=== PATIENT | female | born 2000 | race Two or more races ===

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

== ENCOUNTER → 2020-12-05 | Outpatient (REF) | payer OTHER ==
[2020-12-05 11:52] LABS: BASO % 0.4 % (0.0-1.0); EOS # 0.1 10^3/uL (0.0-0.5); EOS % 1.1 % (0.0-3.0); HEMATOCRIT 45.3 % (36.0-47.0); HEMOGLOBIN 14.5 g/dl (12.0-15.5); LYMPH % 22.7 % (24.0-44.0); MEAN CORPUSCULAR HEMOGLOBIN 26.9 pg (27.0-33.0); MEAN CORPUSCULAR VOLUME 83.9 fl (80.0-96.0); MONO # 0.5 10^3/uL (0.0-0.8); MONO % 5.6 % (2.0-8.0); NEUTROPHILS # 6.3 10^3/uL (1.5-8.5); NEUTROPHILS % 69.8 % (36.0-66.0); PLATELET COUNT, AUTOMATED 383 10^3/uL (150-450)
[2020-12-05 12:46] LABS: ALBUMIN 4.3 GM/DL (3.2-5.2); ALT/SGPT 41 U/L (12-78); BILIRUBIN,TOTAL 0.9 MG/DL (0.2-1.0); BLOOD UREA NITROGEN 14 MG/DL (7-18); CALCIUM LEVEL 9.8 MG/DL (8.5-10.1); CARBON DIOXIDE LEVEL 27 MEQ/L (21-32); CHLORIDE LEVEL 103 MEQ/L (98-107); CREATININE FOR GFR 0.74 MG/DL (0.55-1.30); FREE T4 0.82 NG/DL (0.78-1.33); GLUCOSE, FASTING 96 MG/DL (70-100); POTASSIUM SERUM 3.9 MEQ/L (3.5-5.1); SODIUM LEVEL 138 MEQ/L (136-145); TOTAL PROTEIN 8.2 GM/DL (6.4-8.2)
[2020-12-05 13:26] LABS: HEMOGLOBIN A1c 5.4 %
== END ==
LOC: M SFHCPLAZ 09:44
PROVIDERS: ATTEND Nurse Practitioner Family
DX: Z00.00 Encounter for general adult medical examination without abnormal findings (principal); Z13.228 Encounter for screening for other metabolic disorders; Z13.1 Encounter for screening for diabetes mellitus

== ENCOUNTER 2021-09-03 13:47 | Emergency (ER) | payer OTHER ==
[~2021-09-03] VITALS: Ht 170.2 cm; Wt 95.5 kg
[2021-09-03 14:00] VITALS: BP 120/74
[2021-09-03] MEDS ORDERED: IBUPROFEN 800 MG TAB PO ONE (16:55)
[2021-09-03] MEDS ORDERED: IBUP80TA PO (16:58)
== END 2021-09-03 18:09 | disposition home or self-care (01) ==
LOC: M ED 13:47
DX: S92.354A Nondisplaced fracture of fifth metatarsal bone, right foot, initial encounter for closed fracture (principal); W16.512A Jumping or diving into swimming pool striking water surface causing other injury, initial encounter; Y92.9 Unspecified place or not applicable; Y93.11 Activity, swimming; Y99.0 Civilian activity done for income or pay

== ENCOUNTER → 2021-09-21 | Outpatient (CLI) | payer OTHER ==
[~2021-09-21] MED LIST changes: +IBUP80TA PO
== END ==
LOC: M SOG 13:07
PROVIDERS: ATTEND Orthopaedic Surgery Hand Surgery
DX: S92.351D Displaced fracture of fifth metatarsal bone, right foot, subsequent encounter for fracture with routine healing (principal); X58.XXXS Exposure to other specified factors, sequela

== ENCOUNTER → 2021-10-05 | Outpatient (CLI) | payer OTHER | LOC: M SOG 08:46 | PROVIDERS: ATTEND Orthopaedic Surgery Hand Surgery | DX: S92.351A Displaced fracture of fifth metatarsal bone, right foot, initial encounter for closed fracture (principal); X58.XXXA Exposure to other specified factors, initial encounter; Y92.9 Unspecified place or not applicable ==

== ENCOUNTER → 2021-12-29 | Outpatient (REF) | payer OTHER | LOC: M SFHCPLAZ 10:04 | PROVIDERS: ATTEND Nurse Practitioner Family | DX: Z01.419 Encounter for gynecological examination (general) (routine) without abnormal findings (principal); Z12.4 Encounter for screening for malignant neoplasm of cervix ==

== ENCOUNTER → 2022-04-23 | Outpatient (CLI) | payer OTHER | LOC: M PLAIMG 10:35 → M PLALAB 10:35 | PROVIDERS: ATTEND Nurse Practitioner Family | DX: M54.50 Low back pain, unspecified (principal) ==

== ENCOUNTER 2023-04-11 10:48 | Emergency (ER) | payer OTHER ==
[~2023-04-11] VITALS: Ht 167.6 cm; Wt 90.9 kg
[2023-04-11 13:04] LABS: BASO # 0.1 10^3/uL (0.0-0.2); BASO % 0.6 % (0.0-1.0); EOS # 0.1 10^3/uL (0.0-0.5); EOS % 1.1 % (0.0-3.0); HEMOGLOBIN 13.7 g/dl (12.0-15.5); LYMPH % 30.6 % (24.0-44.0); MEAN CORPUSCULAR HEMOGLOBIN 27.6 pg (27.0-33.0); MEAN CORPUSCULAR HGB CONC 33.4 g/dl (32.0-36.5); MEAN CORPUSCULAR VOLUME 82.7 fl (80.0-96.0); MONO # 0.6 10^3/uL (0.0-0.8); MONO % 6.1 % (2.0-8.0); NEUTROPHILS % 61.2 % (36.0-66.0); PLATELET COUNT, AUTOMATED 340 10^3/uL (150-450); RED BLOOD COUNT 4.96 10^6/uL (4.00-5.40); WHITE BLOOD COUNT 9.7 10^3/uL (4.0-10.0)
[2023-04-11 13:27] LABS: ERYTHROCYTE SEDIMENTATION RATE 17 mm/hr (0-20)
[2023-04-11] MEDS ORDERED: TETRACAINE 0.5% OPHTH SOLN 4ML OU ONE (13:45)
[2023-04-11 14:55] VITALS: BP 105/66; TEMP 98; O2SAT 99
== END 2023-04-11 14:56 | disposition home or self-care (01) ==
LOC: M ED 10:48
DX: G43.709 Chronic migraine without aura, not intractable, without status migrainosus (principal); F17.200 Nicotine dependence, unspecified, uncomplicated; F10.10 Alcohol abuse, uncomplicated; Z79.1 Long term (current) use of non-steroidal anti-inflammatories (NSAID); Z79.899 Other long term (current) drug therapy

== ENCOUNTER 2023-04-24 19:07 | Observation (INO) | payer OTHER ==
[~2023-04-24] VITALS: Ht 167.6 cm; Wt 90.9 kg
[2023-04-24 20:18] LABS: ALBUMIN 4.1 G/DL (3.2-5.2); BILIRUBIN,DIRECT 0.2 MG/DL (<0.4); BILIRUBIN,TOTAL 0.5 MG/DL (0.3-1.2); TOTAL PROTEIN 7.5 G/DL (5.7-8.2)
[2023-04-24 20:19] LABS: BASO # 0.1 10^3/uL (0.0-0.2); BASO % 0.3 % (0.0-1.0); HEMATOCRIT 43.5 % (36.0-47.0); HEMOGLOBIN 14.3 g/dl (12.0-15.5); LYMPH # 4.2 10^3/uL (1.5-5.0); LYMPH % 15.5 % (24.0-44.0); MEAN CORPUSCULAR HEMOGLOBIN 27.3 pg (27.0-33.0); MEAN CORPUSCULAR HGB CONC 32.9 g/dl (32.0-36.5); MEAN CORPUSCULAR VOLUME 83.2 fl (80.0-96.0); MONO % 6.6 % (2.0-8.0); NEUTROPHILS # 20.7 10^3/uL (1.5-8.5); NEUTROPHILS % 76.2 % (36.0-66.0); PLATELET COUNT, AUTOMATED 444 10^3/uL (150-450); RED BLOOD COUNT 5.23 10^6/uL (4.00-5.40); WHITE BLOOD COUNT 27.1 10^3/uL (4.0-10.0)
[2023-04-24] MEDS ORDERED: KETOROLAC 30 MG/ML 1ML VIAL IV ONE (20:20)
[2023-04-24] MEDS ORDERED: ONDANSETRON 4MG 2ML VIAL IV ONE (20:20)
[2023-04-24] MEDS ORDERED: NS 1,000 ML IV ONE (20:20)
[2023-04-24 20:42] LABS: MONO # 1.8 10^3/uL (0.0-0.8)
[2023-04-24] MEDS ORDERED: cefTRIAXone SOD 1 GM in D5W MINI-BAG PLUS 50 ML IV ONE (21:35)
[2023-04-24] MEDS ORDERED: MORPHINE 2 MG/ML 1ML VIAL IV ONE (22:45)
[2023-04-24] MEDS ORDERED: ISOVUE-300 61% 100ML VIAL As Ordered ONE (23:07)
[2023-04-24] MEDS ORDERED: MIDAZOLAM INJ 2MG/2ML VIAL As Ordered ONE (23:13)
[2023-04-24] MEDS ORDERED: fentaNYL 100 MCG/2 ML INJECTION As Ordered ONE (23:13)
[2023-04-24] MEDS ORDERED: ONDANSETRON 4MG 2ML VIAL As Ordered ONE (23:14)
[2023-04-24] MEDS ORDERED: propofoL 200 MG/20 ML VIAL As Ordered ONE (23:14)
[2023-04-24] MEDS ORDERED: LIDOCAINE 2% 100MG/5ML SDV (FOR ANES.) As Ordered ONE (23:14)
[2023-04-25] VITALS (8 sets, daily range): BP systolic 102–107; BP diastolic 62–74; TEMP 96.4–97.9; O2SAT 96–99
[2023-04-25] MEDS ORDERED: ACETAMINOPHEN 1000MG 100ML IV BAG As Ordered ONE (00:15)
[2023-04-25 00:19] LABS: RSV AMPLIFICATION NEGATIVE (NEGATIVE)
[2023-04-25] MEDS ORDERED: SODIUM CHLORIDE 0.9% 1000ML IV SCH (00:20)
[2023-04-25] MEDS ORDERED: NS 1,000 ML IV SCH (00:20)
[2023-04-25] MEDS ORDERED: ONDANSETRON 4MG 2ML VIAL IV PRN ×2 (00:20→00:45)
[2023-04-25] MEDS ORDERED: HYDROMORPHONE HCL 0.5 MG/ 0.5 ML SYRINGE IV PRN (00:20)
[2023-04-25] MEDS ORDERED: ACETAMINOPHEN TAB 650MG DOSE (2X325MG) PO PRN (00:20)
[2023-04-25] MEDS ORDERED: LR 1,000 ML IV SCH (00:45)
[2023-04-25] MEDS ORDERED: METOCLOPRAMIDE INJ 10MG/2ML VIAL IV PRN (00:45)
[2023-04-25] MEDS ORDERED: oxyCODONE 5MG TAB PO PRN (00:45)
[2023-04-25] MEDS ORDERED: fentaNYL 100 MCG/2 ML INJECTION IV PRN (00:45)
[2023-04-25] MEDS ORDERED: TOPI-254 PO (02:10)
[2023-04-25] MEDS ORDERED: SUMA50TA2 PO (02:10)
[2023-04-25] MEDS ORDERED: AMIT10TA7 PO (02:10)
[2023-04-25] MEDS ORDERED: PRED20TA PO (02:10)
[2023-04-25] MEDS ORDERED: HOME MED LIST COMPLETE! XX SCH (02:15)
[2023-04-25 08:08] LABS: HEMATOCRIT 37.1 % (36.0-47.0); HEMOGLOBIN 12.3 g/dl (12.0-15.5); MEAN CORPUSCULAR HEMOGLOBIN 27.6 pg (27.0-33.0); MEAN CORPUSCULAR HGB CONC 33.2 g/dl (32.0-36.5); MEAN CORPUSCULAR VOLUME 83.4 fl (80.0-96.0); RED BLOOD COUNT 4.45 10^6/uL (4.00-5.40); WHITE BLOOD COUNT 15.6 10^3/uL (4.0-10.0)
[2023-04-25 08:09] LABS: PLATELET COUNT, AUTOMATED 336 10^3/uL (150-450)
[2023-04-25] MEDS ORDERED: KETOROLAC 30 MG/ML 1ML VIAL IV PRN (08:35)
[2023-04-25 08:48] LABS: ALBUMIN 3.3 G/DL (3.2-5.2); ALKALINE PHOSPHATASE 86 U/L (46-116); ALT/SGPT 54 U/L (7.0-40); AST/SGOT 47 U/L (<34); BILIRUBIN,DIRECT 0.3 MG/DL (<0.4); BILIRUBIN,TOTAL 0.7 MG/DL (0.3-1.2); BLOOD UREA NITROGEN 19 MG/DL (9-23); CALCIUM LEVEL 8.5 MG/DL (8.5-10.1); CARBON DIOXIDE LEVEL 23 MMOL/L (20-31); CHLORIDE LEVEL 109 MMOL/L (98-107); CREATININE FOR GFR 0.75 MG/DL (0.55-1.30); GLOMERULAR FILTRATION RATE > 60.0 (>60); GLUCOSE, FASTING 115 MG/DL (60-100); POTASSIUM SERUM 4.1 MMOL/L (3.5-5.1); SODIUM LEVEL 141 MMOL/L (136-145); TOTAL PROTEIN 6.3 G/DL (5.7-8.2)
[2023-04-25] MEDS ORDERED: CEFD300C41 PO ×2 (12:07→12:12)
[2023-04-25] MEDS ORDERED: PROBCAP14 PO (12:07)
[2023-04-25] MEDS ORDERED: OXYB5TAB10 PO (12:07)
[2023-04-25] MEDS ORDERED: cefTRIAXone SOD 1 GM in D5W MINI-BAG PLUS 50 ML IV SCH ×2 (15:00→21:00)
== END 2023-04-25 15:02 | disposition home or self-care (01) ==
LOC: M ED 19:07 → M ED INP 04-25 00:18 → M MS4PR 04-25 01:51
PROVIDERS: ADMIT Internal Medicine; ATTEND Internal Medicine
DX: N13.2 Hydronephrosis with renal and ureteral calculous obstruction (principal); N39.0 Urinary tract infection, site not specified; G43.909 Migraine, unspecified, not intractable, without status migrainosus; E66.9 Obesity, unspecified; Z79.899 Other long term (current) drug therapy
CPT/HCPCS: 36415; 52332; 74176; 76000; 76830; 76856; 80047; 80048; 80076; 81000; 81001; 81015; 83605; 83690; 84702; 85025; 85027; 87040; 87086; 87631; 93976; 96365; 96366; 96375; 99284; C1769; C2617; J0131; J0696; J1100; J1885; J2250; J2405; J3010; Q9967

== ENCOUNTER 2023-04-28 15:17 | Emergency (ER) | payer OTHER ==
[2023-04-28 23:10] LABS: BASO # 0.1 10^3/uL (0.0-0.2); BASO % 0.3 % (0.0-1.0); EOS # 0.1 10^3/uL (0.0-0.5); EOS % 0.6 % (0.0-3.0); HEMATOCRIT 42.4 % (36.0-47.0); HEMOGLOBIN 14.4 g/dl (12.0-15.5); LYMPH # 3.5 10^3/uL (1.5-5.0); LYMPH % 19.3 % (24.0-44.0); MEAN CORPUSCULAR HEMOGLOBIN 27.6 pg (27.0-33.0); MEAN CORPUSCULAR VOLUME 81.4 fl (80.0-96.0); MONO # 0.9 10^3/uL (0.0-0.8); MONO % 4.8 % (2.0-8.0); NEUTROPHILS # 13.3 10^3/uL (1.5-8.5); NEUTROPHILS % 74.2 % (36.0-66.0); PLATELET COUNT, AUTOMATED 423 10^3/uL (150-450); RED BLOOD COUNT 5.21 10^6/uL (4.00-5.40); WHITE BLOOD COUNT 17.9 10^3/uL (4.0-10.0)
[2023-04-28 23:31] LABS: LIPASE 27 U/L (12-53)
[2023-04-28 23:34] LABS: ALKALINE PHOSPHATASE 116 U/L (46-116); ALT/SGPT 130 U/L (7.0-40); AST/SGOT 47 U/L (<34); BILIRUBIN,DIRECT 0.4 MG/DL (<0.4); BILIRUBIN,TOTAL 1.2 MG/DL (0.3-1.2); BLOOD UREA NITROGEN 11 MG/DL (9-23); CALCIUM LEVEL 9.6 MG/DL (8.5-10.1); CARBON DIOXIDE LEVEL 21 MMOL/L (20-31); CHLORIDE LEVEL 103 MMOL/L (98-107); CREATININE FOR GFR 0.78 MG/DL (0.55-1.30); GLOMERULAR FILTRATION RATE > 60.0 (>60); GLUCOSE, FASTING 108 MG/DL (60-100); POTASSIUM SERUM 4.3 MMOL/L (3.5-5.1); SODIUM LEVEL 136 MMOL/L (136-145); TOTAL PROTEIN 7.7 G/DL (5.7-8.2)
[2023-04-28] MEDS ORDERED: ONDANSETRON 4MG 2ML VIAL IV ONE (23:45)
[2023-04-28] MEDS ORDERED: NS 1,000 ML IV ONE (23:45)
[2023-04-29 01:45] VITALS: BP 105/57; TEMP 98; O2SAT 100
== END 2023-04-29 02:09 | disposition home or self-care (01) ==
LOC: M ED 15:17
DX: I95.1 Orthostatic hypotension (principal); F17.200 Nicotine dependence, unspecified, uncomplicated; Z87.442 Personal history of urinary calculi; Z79.2 Long term (current) use of antibiotics; Z79.899 Other long term (current) drug therapy
CPT/HCPCS: 80048; 80076; 81001; 83690; 84702; 85025; 87086; 93041; 96361; 96374; 99284; J2405

== ENCOUNTER → 2023-04-28 | Outpatient (CLI) | payer OTHER ==
[~2023-04-28] MED LIST changes: +AMIT10TA7 PO; +CEFD300C41 PO; +OXYB5TAB10 PO; +PRED20TA PO; +PROBCAP14 PO; +SUMA50TA2 PO; +TOPI-254 PO
== END ==
LOC: M RAD 11:47
PROVIDERS: ATTEND Physician Assistant
DX: Z01.818 Encounter for other preprocedural examination (principal)

== ENCOUNTER → 2023-04-28 | Outpatient (REF) | payer OTHER ==
[2023-04-28 17:53] LABS: APPEARANCE, URINE HAZY (CLEAR); BACTERIA, URINE AUTO 1+ (NEGATIVE); BILIRUBIN, URINE AUTO NEGATIVE (NEGATIVE); BLOOD, URINE BLOOD 3+ (NEGATIVE); COLOR, URINE YELLOW (YELLOW); GLUCOSE, URINE (UA) AUTO NEGATIVE (NEGATIVE); KETONE, URINE AUTO NEGATIVE (NEGATIVE); LEUKOCYTE ESTERASE, URINE AUTO 1+ (NEGATIVE); MUCUS, URINE SMALL (NEGATIVE); NITRITE, URINE AUTO NEGATIVE (NEGATIVE); PROTEIN, URINE AUTO 1+ mg/dL (NEGATIVE); RBC, URINE AUTO TNTC /HPF (0-3); SPECIFIC GRAVITY URINE AUTO 1.014 (1.002-1.035); SQUAMOUS EPITHELIAL CELL UR AU 0 /HPF (0-6); UROBILINOGEN, URINE AUTO 0.2 mg/dL (0.0-2.0); WBC, URINE AUTO 7 /HPF (0-3)
== END ==
LOC: M SMT 16:59
PROVIDERS: ATTEND Physician Assistant
DX: Z01.818 Encounter for other preprocedural examination (principal)

== ENCOUNTER 2023-05-02 07:13 | Day surgery (SDC) | payer OTHER ==
[~2023-05-02] VITALS: Ht 167.6 cm; Wt 92.6 kg
[~2023-05-02 07:13] MED LIST changes: +ceFAZolin SOD 2 GM in IV 1 EA IV ONE
[2023-05-02] MEDS ORDERED: propofoL 200 MG/20 ML VIAL As Ordered ONE (07:47)
[2023-05-02] MEDS ORDERED: ONDANSETRON 4MG 2ML VIAL As Ordered ONE (07:47)
[2023-05-02] MEDS ORDERED: LIDOCAINE 2% 100MG/5ML SDV (FOR ANES.) As Ordered ONE (07:47)
[2023-05-02] MEDS ORDERED: MIDAZOLAM INJ 2MG/2ML VIAL As Ordered ONE (07:49)
[2023-05-02] MEDS ORDERED: fentaNYL 100 MCG/2 ML INJECTION As Ordered ONE (07:49)
[2023-05-02] MEDS ORDERED: ISOVUE-300 61% 100ML VIAL As Ordered ONE (10:07)
[2023-05-02] MEDS ORDERED: ACETAMINOPHEN 1000MG 100ML IV BAG As Ordered ONE (10:33)
[2023-05-02] MEDS ORDERED: oxyCODONE 5MG TAB PO PRN (11:00)
[2023-05-02] MEDS ORDERED: LR 1,000 ML IV SCH (11:00)
[2023-05-02] MEDS ORDERED: ONDANSETRON 4MG 2ML VIAL IV PRN (11:00)
[2023-05-02] MEDS ORDERED: PERCOCET 5MG/325MG TAB PO PRN (11:15)
[2023-05-02 12:20] VITALS: BP 100/67; TEMP 97.7; O2SAT 100
== END 2023-05-02 12:20 | disposition home or self-care (01) ==
LOC: M SDC 07:13
PROVIDERS: ATTEND Urology
DX: N20.1 Calculus of ureter (principal); G43.909 Migraine, unspecified, not intractable, without status migrainosus; F17.200 Nicotine dependence, unspecified, uncomplicated; Z79.899 Other long term (current) drug therapy
CPT/HCPCS: 52332; 52352; 76000; 81025; 82365; C1769; C1894; C2617; J0131; J0690; J1100; J2250; J2405; J3010; Q9967

== ENCOUNTER → 2023-12-16 | Outpatient (CLI) | payer OTHER ==
[~2023-12-16] MED LIST changes: +CEFD1CAP9 PO; -CEFD300C41 PO; -OXYB5TAB10 PO; +OXYB5TAB14 PO; +TOPI-21 PO; -TOPI-254 PO; -ceFAZolin SOD 2 GM in IV 1 EA IV ONE
== END ==
LOC: M WUC 10:52
PROVIDERS: ATTEND Physician Assistant
DX: M79.672 Pain in left foot (principal)

== ENCOUNTER → 2024-01-12 | Outpatient (CLI) | payer OTHER | LOC: M WUC 09:55 | PROVIDERS: ATTEND Urology | DX: N20.0 Calculus of kidney (principal) ==